=== PATIENT | female | born 1950 | race Caucasian/White ===

== ENCOUNTER 2024-10-14 06:37 | Observation (INO) ==
--- NOTE | 2024-10-04 09:52 | PAT Medication Instructions ---
Medication Instructions Date of Service October 04, 2024 Home Medications acetaminophen 500 mg tablet 1,000 mg PO Q6H PRN amlodipine 5 mg tablet 5 mg PO QAM ascorbic acid (vitamin C) 250 mg tablet (Vitamin C) 250 mg PO QAM aspirin 81 mg tablet 81 mg PO QAM atorvastatin 40 mg tablet 40 mg PO QAM chlorpheniramine-dextromethorphan 4 mg-30 mg tablet (Coricidin HBP Cough and Cold) 1 tab PO BID PRN fexofenadine 180 mg tablet 180 mg PO QAM glucosamine sulf dipot chlr,msm,chond 550 mg-C 30 mg-cookie 1 mg capsule (Glucosamine Chondroitin) 1 cap PO QAM inositol-choline [id number] B complex and C 500 mg tablet (Lipo- Flavonoid) 1 tab PO BID lisinopril 20 mg tablet 20 mg PO BID meloxicam 15 mg tablet 15 mg PO QAM metoprolol succinate 100 mg tablet,extended release 24 hr 100 mg PO QAM multivitamin 1 cap PO QAM omega-3 fatty acids 1,000 mg PO QAM omeprazole 40 mg capsule,delayed release 40 mg PO QAM zinc gluconate 30 mg tablet 30 mg PO QAM ASK your surgeon for instructions meloxicam 15 mg tablet 15 mg PO QAM ASK your prescriber and surgeon aspirin 81 mg tablet 81 mg PO QAM STOP taking 2 weeks before surgery (or as soon as possible if surgery is within 2 weeks) glucosamine sulf dipot chlr,msm,chond 550 mg-C 30 mg-cookie 1 mg capsule (Glucosamine Chondroitin) 1 cap PO QAM inositol-choline [id number] B complex and C 500 mg tablet (Lipo- Flavonoid) 1 tab PO BID omega-3 fatty acids 1,000 mg PO QAM DO NOT take the morning of surgery ascorbic acid (vitamin C) 250 mg tablet (Vitamin C) 250 mg PO QAM chlorpheniramine-dextromethorphan 4 mg-30 mg tablet (Coricidin HBP Cough and Cold) 1 tab PO BID PRN fexofenadine 180 mg tablet 180 mg PO QAM lisinopril 20 mg tablet 20 mg PO BID multivitamin 1 cap PO QAM zinc gluconate 30 mg tablet 30 mg PO QAM Take morning of surgery With a small sip of water, OTHERWISE NOTHING TO EAT OR DRINK AFTER MIDNIGHT: acetaminophen 500 mg tablet 1,000 mg PO Q6H PRN(if needed) amlodipine 5 mg tablet 5 mg PO QAM atorvastatin 40 mg tablet 40 mg PO QAM metoprolol succinate 100 mg tablet,extended release 24 hr 100 mg PO QAM omeprazole 40 mg capsule,delayed release 40 mg PO QAM Take evening before surgery acetaminophen 500 mg tablet 1,000 mg PO Q6H PRN(if needed) chlorpheniramine-dextromethorphan 4 mg-30 mg tablet (Coricidin HBP Cough and Cold) 1 tab PO BID PRN(if needed) lisinopril 20 mg tablet 20 mg PO BID Other Notes If you have any questions please call us at [phone] or [phone] or [phone] or [phone]
--- NOTE | 2024-10-05 14:21 | Anesthesiology Consultation ---
Date of Service October 05, 2024 Assessment & Plan (1) Encounter for pre-operative examination: - check BSG am DOS. - Case discussed in detail with Dr. Saini who advised nothing additional is needed and patient can proceed. - Outpatient joint assessment: Patient is currently scheduled for inpatient pathway. If re-evaluated and patient/surgeon requests outpatient pathway, patient is not advised candidate for outpatient joint program. Chart Review Chart Review: Acceptable Risk for Surgery and Patient seen in Pre Admission Testing Teaching & Discussion Pre-Anesthesia Teaching/Discussion Notes: Instructed NPO after midnight before surgery, except medications with 15 cc of water. Medication instructions provided according to the PAT guidelines. History Surgery Operation Date: 10/14/24 08:50 Proposed Procedures p Left Total Knee Arthroplasty - Emre Murray MD Height/Weight Height: 5 ft 10 in Weight: 126.5 kg Allergies Allergy/AdvReac Type Severity Reaction Status Date / Time Quinolones Allergy Mild RASH Verified 10/04/24 08:49 Tetracyclines Allergy Mild RASH Verified 10/04/24 08:49 hydrocodone AdvReac Mild N/V Verified 10/04/24 08:49 oxycodone AdvReac Mild NAUSEA Verified 10/04/24 08:49 Medications Home Medications Medication Instructions Recorded Confirmed Last Taken acetaminophen 500 mg tablet 1,000 mg PO Q6H PRN Pain 10/04/24 10/04/24 Unknown amlodipine 5 mg tablet 5 mg PO QAM 10/04/24 10/04/24 Unknown ascorbic acid (vitamin C) 250 mg 250 mg PO QAM 10/04/24 10/04/24 Unknown tablet (Vitamin C) aspirin 81 mg tablet 81 mg PO QAM 10/04/24 10/04/24 Unknown atorvastatin 40 mg tablet 40 mg PO QAM 10/04/24 10/04/24 Unknown chlorpheniramine-dextromethorphan 1 tab PO BID PRN allergies 10/04/24 10/04/24 Unknown 4 mg-30 mg tablet (Coricidin HBP Cough and Cold) fexofenadine 180 mg tablet 180 mg PO QAM 10/04/24 10/04/24 Unknown glucosamine sulf dipot 1 cap PO QAM 10/04/24 10/04/24 Unknown chlr,msm,chond 550 mg-C 30 mg-cookie 1 mg capsule (Glucosamine Chondroitin) inositol-choline [id number] 1 tab PO BID 10/04/24 10/04/24 Unknown B complex and C 500 mg tablet (Lipo-Flavonoid) lisinopril 20 mg tablet 20 mg PO BID 10/04/24 10/04/24 Unknown meloxicam 15 mg tablet 15 mg PO QAM 10/04/24 10/04/24 Unknown metoprolol succinate 100 mg 100 mg PO QAM 10/04/24 10/04/24 Unknown tablet,extended release 24 hr multivitamin 1 cap PO QAM 10/04/24 10/04/24 Unknown omega-3 fatty acids 1,000 mg PO QAM 10/04/24 10/04/24 Unknown omeprazole 40 mg capsule,delayed 40 mg PO QAM 10/04/24 10/04/24 Unknown release zinc gluconate 30 mg tablet 30 mg PO QAM 10/04/24 10/04/24 Unknown Past Medical History Medical History (Updated 10/05/24 @ 16:39 by Sunshine Ayala PA-C) Cataracts, bilateral monitoring Diabetes diet controlled GERD (gastroesophageal reflux disease) controlled, stable per pt History of kidney stones 15 yrs ago Hyperlipidemia Hypertension controlled, stable per pt Osteoarthritis PONV (postoperative nausea and vomiting) denies needing scop patch Patient denies h/o stroke, seizures, heart attack, heart failure, blood clots/DVTs or blood transfusions. Exercise / Class Metabolic Activity III < 4 Walking/Shop/Light housework (ambulates with cane, shortness of breath with usual activities ongoing for several years gradually worsening with reduced physical activity and weight gain-denies chest discomfort) Past Surgical History Surgical History History of right knee joint replacement (2009) Hx of hysterectomy (1990) Complete SHARON BSO Hx of left breast biopsy (1981) neg findings Hx of lithotripsy mulitple. last episode 2014 Hx of tonsillectomy as child Past Anesthesia History No Hx of Anesthesia Complications and No Family Hx of Anesthesia Complications History of PONV History of PONV (denies needing scop patch) and Hx of Motion Sickness Social History Smoking Status: Never smoker Do You Dip or Chew Tobacco: No Hx Alcohol Use: Yes alcohol intake frequency: holidays/special occasions only Hx Substance Use: No substance use type: does not use Review of Systems Patient denies chest pain, snoring, witnessed apneas, fever, chills, cough, wheezing, or palpitations. Physical Exam Vital Signs Vitals BP 140/74 P 72 TEMP 97.7 SP02 95% on RA RESP 17 Physical Patient resting comfortably in chair in no acute distress, alert and oriented, responding appropriately throughout visit Full cervical extension range of motion without pain TMD 3.5 finger breadths Mallampati Score 3 Dentition: several broken teeth and caps/crowns, denies loose teeth, implants or bridges Lungs: normal respiratory effort. Good air movement, clear throughout to auscultation, no adventitious breath sounds Cardiac: regular rate and rhythm, no murmurs noted Carotid arteries: negative bruit bilat Lab Results Anesthesia Preop Results Results Anesthesia Widget: WBC 4.27 K/ul (4.8-10.8) L 10/05/24 Hgb 14.4 g/dl (12.0-16.0) 10/05/24 Hct 42.7 % (37.0-47.0) 10/05/24 Plt 278 K/uL (130-400) 10/05/24 Na 142 mmol/L (136-145) 10/05/24 K 4.4 mmol/L (3.5-5.1) 10/05/24 Cl 108 mmol/L (98-107) H 10/05/24 CO2 27 mmol/L (21-32) 10/05/24 BUN 22 mg/dl (6-23) 10/05/24 Creat 0.80 mg/dl (0.6-1.2) 10/05/24 Glucose Level 148 mg/dl (70-99(Fasting)) H 10/05/24 PT 10.4 Seconds (9.0-12.0) 10/05/24 PTT 26 Seconds (21-31) 10/05/24 INR 1.0 (0.9-1.1) 10/05/24 HA1c 7.0 % (4.5-5.6) H 10/05/24 Blood Type O Positive 10/05/24 Antibody Screen NEGATIVE 10/05/24 Testing Electrocardiogram Date: 10/05/24 NSR, rate 72 bpm Chest X-Ray Date: 10/05/24 No acute findings.
[~2024-10-14 06:37] MED LIST: BUPIVACAINE 0.5 % 5 MG/1 ML PF 10ML VIAL ONE; ROPIVACAINE 0.5% 5 MG/ML 30 ML VIAL ONE
[2024-10-14] MEDS: LR 500ML BOLUS, THEN 15ML/HR IV SCH (07:00)
--- NOTE | 2024-10-14 07:01 | History & Physical Bridge Note ---
Date of Service October 14, 2024 History & Physical Bridge Note I have examined the patient, reviewed the History & Physical and in the interval since the performance of the History & Physical I have noted the following changes of clinical significance: no changes noted
[2024-10-14] MEDS: CeleBREX 200 MG CAP PO SCH (07:13)
[2024-10-14] MEDS: FAMOTIDINE 20 MG TAB PO SCH (07:13)
[2024-10-14] MEDS: METOCLOPRAMIDE HCL 10 MG TABLET PO SCH (07:13)
[2024-10-14] MEDS: ACETAMINOPHEN 500 MG TAB PO SCH ×2 (07:13→14:08)
[2024-10-14] MEDS: dexAMETHasone**PF** 10 MG/ML VIAL IV SCH (07:15)
[2024-10-14] MEDS: LR 60ML/HR IV SCH (07:19)
[2024-10-14] MEDS ORDERED: ATROPINE SULFATE 0.1 MG/ML 10ML SYR IV PRN (07:42)
[2024-10-14] MEDS ORDERED: ePHEDrine sulfate 50 MG/ML AMP IV PRN (07:42)
[2024-10-14] MEDS ORDERED: ONDANSETRON INJ 2 MG/ML 2 ML VIAL IV PRN (07:42)
[2024-10-14] MEDS ORDERED: fentaNYL citrate PF 100 MCG/2 ML VIAL IV PRN (07:42)
[2024-10-14] MEDS ORDERED: fentaNYL citrate PF 100 MCG/2 ML VIAL ONE (08:02)
[2024-10-14] MEDS ORDERED: MIDAZOLAM HCL 1 MG/ML 2ML VIAL ONE (08:03)
[2024-10-14] MEDS ORDERED: KETAMINE HCL 10MG/ML SYR ONE (08:15)
[2024-10-14] MEDS ORDERED: DexMEDEtomidine HCL IV 100 MCG/ML VIAL IV ONE (08:15)
[2024-10-14] MEDS ORDERED: ONDANSETRON INJ 2 MG/ML 2 ML VIAL ONE (08:32)
[2024-10-14] MEDS ORDERED: PROPOFOL IV EMULSION 10 MG/ML 20 ML VIAL IV ONE ×3 (08:32→10:32)
[2024-10-14] MEDS: TRANEXAMIC ACID 1,000 MG **IV Intra-op IV SCH (08:57)
[2024-10-14] MEDS: ceFAZolin 3000MG 3,000 MG/72.5 ML BAG IV SCH (09:24)
[2024-10-14] MEDS: ROPIV 0.5% 246mg, Ketorolac 30mg, EPINEPHrine 0.5mg in NSS INFIL SCH (09:55)
[2024-10-14] MEDS ORDERED: PHENYLEPHRINE 100MCG/ML 5ML SYR ONE (09:56)
[2024-10-14] MEDS: ORTHO JOINT ANESTHETIC ONE (09:56)
[2024-10-14] MEDS ORDERED: ePHEDrine sulfate 50 MG/5 ML SYR ONE (09:57)
--- NOTE | 2024-10-14 11:28 | Operative Report ---
PG Post Operative Report Pre & Post Diagnosis Operation Date: 10/14/24 08:50 Pre-Op Diagnosis: Left Knee Arthritis Post-Op Diagnosis: Left Knee Arthritis I identified the patient and participated in the time-out.: Yes Procedure Operation Date: 10/14/24 08:50 Actual Procedures p Left Total Knee Arthroplasty(Left) - Emre Murray MD Surgeon Emre Murray MD [employer] Waste Technician Kuldip Bess PA-C Estimated Blood Loss 50 Findings Consistent with Post-Op Diagnosis Specimens Left knee sent for pathology. 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 Over the past several years she has developed increased pain discomfort and stiffness in the left knee. She failed all conservative measures. X-rays revealed advanced left knee DJD. She had very stiff knee as well. She elected proceed with total knee arthroplasty. Description of Procedure Operative implants consist of: 1. Biomet Vanguard size 70 left posterior stabilized femoral component. 2. Biomet size 75 tibial tray with a 12.5 mm x 80 mm extension 3. 14 mm posterior stabilized polyethylene insert. 4. 31 x 8 all poly patella. The patient was taken to the op room, identified, placed on the operative table in the supine position. All contact areas were appropriately padded. IV antibiotics fibra anesthesia team. Spinal anesthetic and adductor canal block had been provided in holding area. Guo catheter was placed in sterile fashion. Left [place] was then placed. Left lower extremity was then prepped and draped in usual sterile fashion. The left leg was elevated and exsanguinated with use of an Esmarch and a turn was placed at 300 mmHg. An anterior approach the left knee was then performed to longitudinal incision centered over the patella. Sharp dissection was Through subcutaneous tissue down the extensor mechanism. A medial parapatellar arthrotomy incision was made. Some subperiosteal dissection was carried out medially. The fat pad was dissected beneath the patella tendon. Lateral patellofemoral ligament was released. Patella was subluxated laterally and the knee was flexed. The osteophytes taken off distal femur. The ACL was absent. The PCL was released. The tibia subluxated anteriorly. The external tibial alignment jig was then placed on the anterior face of the tibia and adjusted 14 mm medially. Proximal tibial cut was made actually a couple millimeters above the most deficient aspect of the medial tibial plateau. She did have some bone deficiency medially. Some large osteophytes were removed. The tibia was sized to a size 75. Attention was then drawn to the femur. The distal femur was entered with a sharp drill. Intramedullary canal was suction. A left 5 degree valgus cutting guide was placed. The distal femoral cutting block was pinned in place. This femoral cut was made to take an additional 3 mm of bone off distal femur. The femur was then sized to a size 70. We sized almost exactly to a 70. The AP cutting block was pinned parallel to the epicondylar axis which was 6 degrees of external rotation. The anterior cut, anterior chamfer, posterior cut, posterior chamfer cuts were made. The box cutting guide was placed in a just slight lateral and the box cut was made. The knee was flexed. The remnants of the medial and lateral menisci were excised. The osteophytes taken off the posterior aspect the femur. Trial femoral component was placed. The tibial tray was pinned in Deborah external rotation and the drill and stem punch were used to create defect from proximal tibia for the tibial tray. We then hand reamed up to a size 15. We elected to place a 12.5 mm extension stem due to her severe varus deformity and bone destruction medially. The tibia was assembled in place. The femoral component was trialed. The knee was then trialed and the 14 mm insert fit most appropriately. Attention drawn the patella. The patella was cleaned of all soft tissue. Some large osteophytes removed. Patella thickness measured 23 mm in thickness cut down to 14. Was sized to a size 31 patella. The lug holes were drilled for 31 patella. The lateral osteophytes removed. Patella button was placed. Knee was taken through range of motion patella tracked nicely with no thumbs test. Attention jointer placed in permanent components. NuPrep all trial components were removed. Bone plug was placed into the distal femur limit blood loss. A double batch Palko G cement was mixed. A Biomet Vanguard size 70 left posterior stabilized femoral component, size 75 tibial tray with a 80 mm x 12.5 mm stem extension, a 14 mm posterior stabilized polyethylene insert, and a 31 x 8 all poly patella then cemented in place. The knee was brought out into full extension till cement hardened. Final cement check was then performed. The pericapsular tissues were injected with total 100 cc of Ortho mix. The patient did receive 1 g tranexamic acid. The tourniquet was then let down for final tourniquet time 72 minutes. Hemostasis assured with electrocautery. Extensor [place] then closed with combination 1 PDS suture #1 Vicryl suture in a [id number] fashion. Extensor [place]clomen checked found to be intact with subcutaneous tissue then closed with 2 Dexon suture in a buried interrupted fashion skin was closed skin wilver. Leg was then cleaned and dried and a sterile dressing with Xeroform, 4 fours, sterile cast padding, Jace bandage were applied. Patient then transferred to the recovery in stable condition. Patient tolerated procedure well and there were no complications. Kuldip Bess, my physician nurse assistant, was present for the entire procedure. His assistance was required for proper patient positioning, prepping draping, surgical exposure, retraction, wound the technical details of the operation, placement of the implants, closure of the incision site, and placement of postoperative sterile bandage. I attest to the content of the Intraoperative Record and any orders documented therein. Any exceptions are noted below.
--- NOTE | 2024-10-14 11:53 | Anesthesiology Progress Note ---
Date of Service October 14, 2024 Anesthesia Post Procedure Vital Signs Vital Signs: Temp Pulse Resp BP Pulse Ox O2 Del Method O2 Flow Rate 10/14/24 11:50 84 17 132/77 95 Nasal Cannula 2 10/14/24 11:40 97.7 F 86 19 127/73 93 Room Air 10/14/24 11:30 93 H 23 114/74 94 Oxymask 3 10/14/24 11:24 99.1 F 94 H 14 135/68 94 Oxymask 9 10/14/24 06:37 97.9 F 81 20 179/84 H 99 Room Air Pain Intensity Left Knee: Pain Intensity: 1 Transfer of Care Handoff Completed per policy Notes Mental Status: alert / awake / arousable and participated in evaluation Patient Amnestic to Procedure: Yes Nausea / Vomiting: adequately controlled Pain: adequately controlled Airway Patency, RR, SpO2: stable & adequate BP & HR: stable & adequate Hydration State: stable & adequate Neuraxial Anesthesia: was administered and sensory block is resolving Anesthetic Complications: no major complications apparent and Pt Satisfied with anesthetic care
--- NOTE | 2024-10-14 12:11 | XRay Report ---
XR knee LT 1 or 2V routine CLINICAL HISTORY: Surgical Post Op COMPARISON: None FINDINGS: Left knee prosthesis shows no hardware complication. There is expected soft tissue gas. Sk in wilver are present. IMPRESSION: Unremarkable postoperative exam. ACT 112: Negative or not required by law. Electronically signed by: Ravindra Tapia M.D. 10/14/2024 12:10 PM
[2024-10-14] MEDS ORDERED: NALOXONE HCL 0.4 MG/1 ML VIAL/CARP IV PRN (12:23)
[2024-10-14] MEDS ORDERED: MAGNESIUM HYDROXIDE SUSP 30 ML UDC PO PRN (12:23)
[2024-10-14] MEDS ORDERED: HYDROmorphone INJ 0.5 MG/0.5 ML SYR IV PRN (12:23)
[2024-10-14] MEDS ORDERED: bisacodyL 10 MG SUPP PR PRN (12:23)
[2024-10-14] MEDS ORDERED: ALUMINUM/MAGNESIUM SUSP 30 ML UDC PO PRN (12:23)
[2024-10-14] MEDS ORDERED: METOCLOPRAMIDE HCL INJ 5 MG/ML 2 ML VIAL IV PRN (12:23)
[2024-10-14] MEDS: KETOROLAC TROMETHAMINE 15 MG/ML VIAL IV SCH (12:48)
[2024-10-14] MEDS: SODIUM CHLORIDE 0.9% 1,000 ML IV SCH (12:48)
[2024-10-14] MEDS: ONDANSETRON INJ 2 MG/ML 2 ML VIAL IV PRN (15:46)
[2024-10-14] MEDS: oxyCODONE HCL IR 5 MG TAB (IMMEDIATE RELEASE) PO PRN (15:46)
[2024-10-14] MEDS: TRANEXAMIC ACID / 0.7% NACL 1,000 MG/100 ML BAG IV SCH (18:19)
[2024-10-14] MEDS: ASCORBIC ACID 500 MG TAB PO SCH (18:23)
[2024-10-14] MEDS: ceFAZolin 2000MG 2,000 MG/15 ML SYR IV SCH (18:30)
[2024-10-14] MEDS: SENNA 8.6 MG TAB PO SCH (20:58)
[2024-10-14] MEDS: lisinopril 20 MG TAB PO SCH (20:59)
[2024-10-14] MEDS: ASPIRIN 81 MG ECTAB PO SCH (20:59)
[2024-10-14] MEDS: DOCUSATE SODIUM 100 MG CAP PO SCH (20:59)
[2024-10-14] MEDS ORDERED: SENNA 8.6 MG TAB PO SCH (21:00)
--- NOTE | 2024-10-15 07:13 | Orthopedic Progress Note ---
Date of Service October 15, 2024 Assessment & Plan (1) Status post left knee replacement: Plan: 74-year-old female postop day 1 from left knee replacement doing well. Pain is controlled. She is neurologically intact. Plan: 1. DVT prophylaxis including thigh-high teds, SCDs, aspirin twice a day. 2. PT/OT. Weight-bear as taught. Left total knee protocol. 3. Pain control. Doing well with current pain regimen. 4. Disposition. She is planned to be discharged to home with some home health. She has a niece that is going to assist in her care as well. (2) Diabetes: (3) History of kidney stones: (4) GERD (gastroesophageal reflux disease): (5) Hyperlipidemia: (6) Hypertension: Admission and Anticipated Discharge Date Admission Date: October 14, 2024 Subjective 74-year-old female postop day 1 from left knee replacement. That she is doing pretty well. Pains been controlled. A reasonable night. No chest pain or shortness of breath. Not feeling dizzy or lightheaded. Physical Exam Physical Exam: Physical exam shows a pleasant middle-aged female. That she is sitting up bed this morning looks pretty comfortable. Examination of left leg reveals the dressing be clean dry and intact. She can dorsiflex and plantarflex her foot appropriately. She is neurologically intact. Respiratory: normal respiratory effort, lungs clear to auscultation Cardiovascular: RRR, no murmur, no edema Gastrointestinal (Abdomen): normal bowel sounds, soft, nontender, no hepatosplenomegaly Results & Data Vital Signs (Past 12 Hours) Vital Signs Temp Pulse Resp BP Pulse Ox O2 Del Method 10/15/24 03:00 36.6 C 70 16 110/68 95 Room Air 10/14/24 23:00 36.6 C 78 18 119/68 95 Room Air 10/14/24 20:07 36.6 C 78 16 132/74 98 Room Air Laboratory Results Labs are pending.
[2024-10-15] MEDS: dexAMETHasone 10 MG in SYRINGE 0 ML IV SCH (08:13)
[2024-10-15 08:14] LABS: Hematocrit (blood only) 34.2 % (37.0-47.0); Hemoglobin 11.2 g/dl (12.0-16.0); Mean Corpuscular Hemoglobin 30.3 pg (25.0-34.0); Mean Corpuscular Hgb Conc 32.7 g/dL (32.0-36.0); Mean Corpuscular Volume 92.4 fL (80.0-100.0); Mean Platelet Volume 9.4 fL (9.4-12.4); Platelet Count 208 K/uL (130-400); RDW Coefficient of Variation 12.5 % (11.5-14.5); White Blood Count 7.05 K/ul (4.8-10.8)
[2024-10-15] MEDS: ATORVASTATIN 40 MG TAB PO SCH (08:14)
[2024-10-15] MEDS: OMEGA-3 (PURIFIED FISH OIL) 1 GM CAP PO SCH (08:14)
[2024-10-15] MEDS: MULTIVITAMIN TAB PO SCH (08:14)
[2024-10-15] MEDS: PANTOprazole 40 MG TAB PO SCH (08:14)
[2024-10-15] MEDS: amLODIPine BESYLATE 5 MG TAB PO SCH (08:14)
[2024-10-15] MEDS: FEXOFENADINE HCL 180 MG TAB PO SCH (08:14)
[2024-10-15] MEDS: METOPROLOL SUCC 50MG EXT REL TAB PO SCH (08:14)
[2024-10-15 08:35] LABS: BUN Creatinine Ratio 24.1 (10-20); Calcium 8.8 mg/dl (8.6-10.3); Creatinine Clr Calc Pharmacy 90.6 ml/min; Potassium 3.8 mmol/L (3.5-5.1)
[2024-10-15] MEDS ORDERED: NON-FORMULARY MEDICATION (Zinc Gluconate 30 mg Tablet) PO SCH (09:00)
[2024-10-15] MEDS ORDERED: NON-FORMULARY MEDICATION (Glucos Sul 2kcl-Msm-Chond-C-Mn [Glucosamine Chondroitin] 550-30- PO SCH (09:00)
[2024-10-15] MEDS ORDERED: NON-FORMULARY MEDICATION (Multivitamin Capsule) PO SCH (09:00)
[2024-10-15] MEDS: ONDANSETRON 4 MG OD TAB PO STA (11:24)
== END 2024-10-15 11:55 | disposition home health service (06) ==
LOC: ASU 06:37 → 3E 06:37